=== PATIENT | female | born 1970 | race Caucasian/White ===

== ENCOUNTER 2017-10-29 22:16 | Observation (INO) | payer OTHER ==
[~2017-10-29] VITALS: Ht 162.6 cm; Wt 77.1 kg
[~2017-10-29 22:16] MED LIST: ACEBUTCAFT PO; ACET325 PO; ALUMAG30SU PO; ATOMOXETINE 80 MG; Ativan1 MG PO; BACL10; BACL20 PO; BP MED; BUTASPCAF PO; CLON.5; CLOT10 SUSW; CVS DISPOSABLE399 ML; CYCL10 PO; Cheratussin AC118 ML PO; DEPAKOTE; DIAZ5 PO; DIPH50 PO; DULO30 PO; GABA100 PO; GABA300 PO; GLYCAS PR; HYDACE10B PO; HYDACE5 PO; HYDACE5325; HYDR1TAB94 PO; HYDRA25 PO; IBUP800 PO; INDO50 PO; Inderal80 MG PO; LEVSOD100 PO; LEVSOD125; LEVSOD150 PO; LEVSOD75; LISI20; LISI20 PO; LORA1 PO; MELA3 PO; METRIBP PO; Miralax17 GM PO; NAPR500 PO; NAPR550 PO; NITR100; NORT25 PO; NUEDEXTA 20-101 EACH PO; OXYACE5T PO; OXYC10ER PO; OXYC5 PO; PARO10 PO; POLY500 PO; PRAZ1 PO; PRED20 PO; PREVPAC PO; PROACE100 PO; PROM25 PO; RANI150 PO; RXHYDACE PO; RXPROACE PO; RXPROM25 PO; Synthroid25 MCG PO; THYROID; TOPI50; TUMS300 MG PO; ZOLOFT; [UNRECOGNIZED DRUG - REMARK]
[2017-10-29 23:10] LABS: BASOPHILS ABSOLUTE AUTO 0.09 K/mm3 (0.00-0.23); BASOPHILS PERCENT AUTO 1 % (0-2); EOSINOPHILS ABSOLUTE AUTO 0.34 K/mm3 (0.00-0.68); EOSINOPHILS PERCENT AUTO 4 % (0-6); Hematocrit 44.7 % (33.0-51.0); Hemoglobin 15.6 g/dL (11.5-16.0); IMMATURE GRAN ABSOLUTE AUTO 0.03 K/mm3 (0.00-0.10); IMMATURE GRAN PERCENT AUTO 0 % (0-1); LYMPHOCYTES ABSOLUTE AUTO 2.78 K/mm3 (0.84-5.20); LYMPHOCYTES PERCENT AUTO 29 % (21-46); MONOCYTES PERCENT AUTO 9 % (4-13); Mean Corpuscular HGB 33.4 pg (26.0-34.0); Mean Corpuscular HGB Conc 34.9 g/dL (31.5-36.5); Mean Corpuscular Volume 96 fL (80-100); Mean Platelet Volume 9.7 fL (9.1-12.4); NEUTROPHILS PERCENT AUTO 57 % (41-73); Platelet Count 322 K/mm3 (150-400); RDW Coefficient Variation 13.2 % (11.7-14.2); RDW Standard Deviation 46.2 fL (35.1-46.3); Red Blood Cell Count 4.67 M/mm3 (3.80-5.20); White Blood Cell Count 9.54 K/mm3 (4.00-11.30)
[2017-10-29 23:12] LABS: Source, Urine Clean Catch
[2017-10-29 23:17] LABS: Appearance, Urine Clear (Clear); Bilirubin, Urine Neg (Neg); Blood, Urine Neg (Neg); Color, Urine Yellow (P-Yellow); Glucose Qualitative, Urine Neg (Neg); Ketones, Urine Neg (Neg); Leukocyte Esterase, Urine Neg (Neg); Nitrite, Urine Neg (Neg); Protein, Urine Neg (Neg); Urobilinogen, Urine NORM (Normal)
[2017-10-29 23:28] LABS: Alanine Aminotransfer (ALT/SGP 60 U/L (12-78); Albumin, Blood 3.7 g/dL (3.4-5.0); Albumin/Globulin Ratio 0.9 (0.8-1.8); Alk Phos 98 U/L (50-136); Anion Gap 8 mmol/L (6-16); Aspartate Aminotrans (AST/SGOT 41 U/L (12-37); Bilirubin, Total 0.4 mg/dL (0.1-1.0); Blood Urea Nitrogen 14 mg/dL (8-24); CO2, Blood 22 mmol/L (21-32); Calcium, Blood 8.5 mg/dL (8.5-10.1); Chloride, Blood 108 mmol/L (98-108); Creatinine, Blood 0.88 mg/dL (0.40-1.00); Globulin, Blood 3.9 g/dL (2.2-4.0); Glomerular Filtration Rate >60 (60-); Glucose, Blood 110 mg/dL (70-99); Potassium, Blood 3.8 mmol/L (3.5-5.5); Sodium, Blood 138 mmol/L (136-145); Total Protein, Blood 7.6 g/dL (6.4-8.2)
[2017-10-29 23:28] LABS: U Amphetamine Screen DETECTED; U Barbituate Screen Not Detected; U Benzodiazapine Screen Not Detected; U Buprenorphine Screen Not Detected; U Cannabinoids Screen Not Detected; U Cocaine Screen Not Detected; U Methadone Screen Not Detected; U Methamphetamine Screen DETECTED; U Opiates Screen DETECTED; U Oxycodone Screen Not Detected; U Phencyclidine Screen Not Detected; U Propoxyphene Screen Not Detected
== END 2017-10-30 14:20 | disposition home or self-care (01) ==
LOC: ER 22:16 → EOR 22:17
PROVIDERS: Emergency Medicine
DX: F15.10 Other stimulant abuse, uncomplicated (principal); F11.10 Opioid abuse, uncomplicated; F17.210 Nicotine dependence, cigarettes, uncomplicated; Z88.6 Allergy status to analgesic agent; Z88.8 Allergy status to other drugs, medicaments and biological substances; Z79.899 Other long term (current) drug therapy
CPT/HCPCS: 36415; 80053; 81003; 85025; 93005; 93010; 99285; G0378

== ENCOUNTER 2018-07-21 08:20 | Emergency (ER) | payer OTHER ==
[~2018-07-21] VITALS: Ht 162.6 cm; Wt 74.8 kg
[2018-07-21 10:16] LABS: BASOPHILS ABSOLUTE AUTO 0.07 K/mm3 (0.00-0.23); BASOPHILS PERCENT AUTO 1 % (0-2); EOSINOPHILS ABSOLUTE AUTO 0.17 K/mm3 (0.00-0.68); EOSINOPHILS PERCENT AUTO 2 % (0-6); Hematocrit 48.2 % (33.0-51.0); IMMATURE GRAN ABSOLUTE AUTO 0.04 K/mm3 (0.00-0.10); IMMATURE GRAN PERCENT AUTO 0 % (0-1); LYMPHOCYTES PERCENT AUTO 22 % (21-46); MONOCYTES ABSOLUTE AUTO 0.66 K/mm3 (0.16-1.47); MONOCYTES PERCENT AUTO 6 % (4-13); Mean Corpuscular HGB 32.5 pg (26.0-34.0); Mean Corpuscular HGB Conc 33.2 g/dL (31.5-36.5); Mean Corpuscular Volume 98 fL (80-100); Mean Platelet Volume 9.9 fL (9.1-12.4); NEUTROPHILS ABSOLUTE AUTO 7.11 K/mm3 (1.96-9.15); NEUTROPHILS PERCENT AUTO 69 % (41-73); Platelet Count 294 K/mm3 (150-400); RDW Coefficient Variation 13.2 % (11.7-14.2); RDW Standard Deviation 47.8 fL (35.1-46.3); Red Blood Cell Count 4.92 M/mm3 (3.80-5.20); White Blood Cell Count 10.35 K/mm3 (4.00-11.30)
[2018-07-21 10:38] LABS: Alanine Aminotransfer (ALT/SGP 68 U/L (12-78); Albumin, Blood 3.6 g/dL (3.4-5.0); Albumin/Globulin Ratio 0.9 (0.8-1.8); Alk Phos 92 U/L (50-136); Anion Gap 9 mmol/L (6-16); Aspartate Aminotrans (AST/SGOT 54 U/L (12-37); Bilirubin, Total 0.3 mg/dL (0.1-1.0); Blood Urea Nitrogen 12 mg/dL (8-24); Bun/Creatinine Ratio 12.9 (12.0-20.0); CO2, Blood 26 mmol/L (21-32); Calcium, Blood 8.7 mg/dL (8.5-10.1); Chloride, Blood 105 mmol/L (98-108); Creatinine, Blood 0.93 mg/dL (0.40-1.00); Glomerular Filtration Rate >60 (60-); Glucose, Blood 84 mg/dL (70-99); Potassium, Blood 4.1 mmol/L (3.5-5.5); Sodium, Blood 140 mmol/L (136-145); Total Protein, Blood 7.6 g/dL (6.4-8.2)
[2018-07-21] MEDS ORDERED: Bentyl20 MG PO (11:23)
[2018-07-21] MEDS ORDERED: TRAM50 PO (11:23)
== END 2018-07-21 12:11 | disposition home or self-care (01) ==
LOC: ER 08:20
PROVIDERS: Emergency Medicine
DX: K80.20 Calculus of gallbladder without cholecystitis without obstruction (principal); H26.9 Unspecified cataract; F17.210 Nicotine dependence, cigarettes, uncomplicated; E03.9 Hypothyroidism, unspecified; Z88.8 Allergy status to other drugs, medicaments and biological substances; Z79.899 Other long term (current) drug therapy
CPT/HCPCS: 76705; 80053; 83690; 84443; 85025

== ENCOUNTER → 2018-08-03 | Outpatient (CLI) | payer OTHER ==
[~2018-08-03] MED LIST changes: +BENZ100A PO; +Bentyl20 MG PO; +CEFD300 PO; +CEPH500 PO; +IBUP600 PO; +ONDA4ODT MM; +Pyridium100 MG PO; +TRAM50 PO
== END | disposition home or self-care (01) ==
LOC: LAB SHORT 16:42 → LAB EV 16:42
DX: N39.0 Urinary tract infection, site not specified (principal)
CPT/HCPCS: 87086

== ENCOUNTER 2018-08-14 23:20 | Emergency (ER) | payer OTHER ==
[~2018-08-14] VITALS: Ht 162.6 cm; Wt 83.9 kg
[~2018-08-14 23:20] MED LIST changes: -BENZ100A PO; -CEFD300 PO; -CEPH500 PO; -IBUP600 PO; -ONDA4ODT MM; -Pyridium100 MG PO
[2018-08-15 00:55] LABS: Source, Urine Clean Catch
[2018-08-15 01:02] LABS: Bilirubin, Urine Neg (Neg); Blood, Urine Neg (Neg); Glucose Qualitative, Urine Neg (Neg); Ketones, Urine Neg (Neg); Leukocyte Esterase, Urine 2+ (Neg); Nitrite, Urine Neg (Neg); Protein, Urine Neg (Neg); Specific Gravity, Urine 1.015 (1.003-1.022); Urobilinogen, Urine 1+ (Normal); pH, Urine 6.5 (5.0-8.0)
[2018-08-15 01:06] LABS: Appearance, Urine Clear (Clear); Color, Urine Yellow (P-Yellow)
[2018-08-15 01:19] LABS: Bacteria Few /hpf; Red Blood Cells, Urine Not Seen /hpf (0-2); Squamous Epithelial Cells Rare /hpf (Few); Trichomonas Few /hpf
[2018-08-15] MEDS ORDERED: IBUP600 PO (01:21)
[2018-08-15] MEDS ORDERED: BENZ100A PO (01:21)
[2018-08-15] MEDS ORDERED: CEPH500 PO (01:21)
[2018-08-15] MEDS ORDERED: Pyridium100 MG PO (01:21)
[2018-08-15] MEDS ORDERED: ONDA4ODT MM (01:21)
[2018-09-18] MEDS ORDERED: CEPH500 PO (19:44)
== END 2018-08-15 02:14 | disposition home or self-care (01) ==
LOC: ER 23:20
PROVIDERS: Emergency Medicine
DX: N12 Tubulo-interstitial nephritis, not specified as acute or chronic (principal); J06.9 Acute upper respiratory infection, unspecified; E03.9 Hypothyroidism, unspecified; F17.210 Nicotine dependence, cigarettes, uncomplicated
CPT/HCPCS: 81001; 87086; 96372; 99283-25; J1885; P9612

== ENCOUNTER 2018-09-02 22:21 | Emergency (ER) | payer OTHER ==
[~2018-09-02] VITALS: Ht 162.6 cm; Wt 83.9 kg
[~2018-09-02 22:21] MED LIST changes: +BENZ100A PO; +CEPH500 PO; +IBUP600 PO; +ONDA4ODT MM; +Pyridium100 MG PO
[2018-09-03 02:02] LABS: Source, Urine Clean Catch
[2018-09-03 02:07] LABS: Bilirubin, Urine Neg (Neg); Blood, Urine 1+ (Neg); Glucose Qualitative, Urine Neg (Neg); Ketones, Urine Neg (Neg); Leukocyte Esterase, Urine 3+ (Neg); Nitrite, Urine Neg (Neg); Protein, Urine 1+ (Neg); Urobilinogen, Urine 1+ (Normal); pH, Urine 6.5 (5.0-8.0)
[2018-09-03 02:09] LABS: Appearance, Urine Hazy (Clear); Color, Urine Yellow (P-Yellow)
[2018-09-03 02:15] LABS: Amorphous Light (0-Heavy); Bacteria Mod /hpf; Mucus Light (0-Heavy); Squamous Epithelial Cells Few /hpf (Few); White Blood Cells, Urine TNTC /hpf (0-5)
[2018-09-03] MEDS ORDERED: CEFD300 PO (02:22)
[2018-09-18] MEDS ORDERED: CEPH500 PO (19:44)
== END 2018-09-03 02:55 | disposition home or self-care (01) ==
LOC: ER 22:21
PROVIDERS: Emergency Medicine
DX: N39.0 Urinary tract infection, site not specified (principal); E03.9 Hypothyroidism, unspecified; F17.210 Nicotine dependence, cigarettes, uncomplicated; Z88.8 Allergy status to other drugs, medicaments and biological substances; Z88.6 Allergy status to analgesic agent
CPT/HCPCS: 81001; 87086; 99283

== ENCOUNTER → 2018-09-23 | Outpatient (CLI) | payer OTHER ==
[~2018-09-23] MED LIST changes: +CEFD300 PO
== END | disposition home or self-care (01) ==
LOC: LAB SHORT 17:00 → LAB EV 17:00
DX: N39.0 Urinary tract infection, site not specified (principal)
CPT/HCPCS: 87086

== ENCOUNTER 2019-03-13 12:42 | Emergency (ER) | payer OTHER ==
[~2019-03-13] VITALS: Ht 162.6 cm; Wt 68.0 kg
[2019-03-13 15:02] LABS: BASOPHILS PERCENT AUTO 1 % (0-2); EOSINOPHILS ABSOLUTE AUTO 0.52 K/mm3 (0.00-0.68); EOSINOPHILS PERCENT AUTO 4 % (0-6); Hematocrit 44.7 % (33.0-51.0); Hemoglobin 15.3 g/dL (11.5-16.0); IMMATURE GRAN ABSOLUTE AUTO 0.08 K/mm3 (0.00-0.10); IMMATURE GRAN PERCENT AUTO 1 % (0-1); LYMPHOCYTES ABSOLUTE AUTO 3.06 K/mm3 (0.84-5.20); LYMPHOCYTES PERCENT AUTO 24 % (21-46); MONOCYTES ABSOLUTE AUTO 0.98 K/mm3 (0.16-1.47); MONOCYTES PERCENT AUTO 8 % (4-13); Mean Corpuscular HGB 33.6 pg (26.0-34.0); Mean Corpuscular HGB Conc 34.2 g/dL (31.5-36.5); Mean Corpuscular Volume 98 fL (80-100); Mean Platelet Volume 10.4 fL (9.1-12.4); NEUTROPHILS ABSOLUTE AUTO 8.25 K/mm3 (1.96-9.15); NEUTROPHILS PERCENT AUTO 64 % (41-73); Platelet Count 273 K/mm3 (150-400); RDW Coefficient Variation 13.8 % (11.7-14.2); RDW Standard Deviation 50.4 fL (35.1-46.3); Red Blood Cell Count 4.55 M/mm3 (3.80-5.20); White Blood Cell Count 12.99 K/mm3 (4.00-11.30)
[2019-03-13 15:20] LABS: Albumin, Blood 4.4 g/dL (3.4-5.0); Albumin/Globulin Ratio 1.1 (0.8-1.8); Bilirubin, Total 0.7 mg/dL (0.1-1.0); Bun/Creatinine Ratio 21.1 (12.0-20.0); Calcium, Blood 10.7 mg/dL (8.5-10.1); Creatinine, Blood 1.09 mg/dL (0.40-1.00); Globulin, Blood 3.9 g/dL (2.2-4.0); Potassium, Blood 3.6 mmol/L (3.5-5.5); Total Protein, Blood 8.3 g/dL (6.4-8.2)
[2019-03-13] MEDS ORDERED: Synthroid25 MCG PO (16:23)
[2019-03-13] MEDS ORDERED: NO ROUTINE MEDS (16:52)
[2019-05-06] MEDS ORDERED: LEVSOD25 PO (09:41)
[2019-05-06] MEDS ORDERED: ALBU90OI INH (09:42)
[2019-05-06] MEDS ORDERED: HYDR10 PO (09:43)
[2019-05-06] MEDS ORDERED: HYDR1TAB94 PO (09:43)
[2019-05-06] MEDS ORDERED: LABE100 PO (09:44)
[2019-05-06] MEDS ORDERED: ONDA4ODT PO (09:44)
== END 2019-03-13 19:10 | disposition home or self-care (01) ==
LOC: ER 12:42
PROVIDERS: Internal Medicine
DX: E03.9 Hypothyroidism, unspecified (principal); Z91.19 Patient's noncompliance with other medical treatment and regimen; Z88.8 Allergy status to other drugs, medicaments and biological substances; Z88.6 Allergy status to analgesic agent; F17.210 Nicotine dependence, cigarettes, uncomplicated
CPT/HCPCS: 36415; 80053; 84443; 85025; 99285

== ENCOUNTER 2019-03-19 06:36 | Emergency (ER) | payer OTHER ==
[~2019-03-19] VITALS: Ht 162.6 cm; Wt 95.2 kg
[~2019-03-19 06:36] MED LIST changes: +NO ROUTINE MEDS
[2019-03-19 07:21] LABS: Source, Urine Clean Catch
[2019-03-19 07:28] LABS: Appearance, Urine Cloudy (Clear); Bilirubin, Urine Neg (Neg); Blood, Urine 2+ (Neg); Color, Urine Yellow (P-Yellow); Glucose Qualitative, Urine Neg (Neg); Ketones, Urine 1+ (Neg); Leukocyte Esterase, Urine 3+ (Neg); Nitrite, Urine Neg (Neg); Protein, Urine 2+ (Neg); Specific Gravity, Urine 1.025 (1.003-1.022); Urobilinogen, Urine 1+ (Normal)
[2019-03-19 07:38] LABS: Squamous Epithelial Cells Few /hpf (Few); White Blood Cells, Urine 25-50 /hpf (0-5)
[2019-03-19 07:40] LABS: Trichomonas Few /hpf
[2019-03-19 07:42] LABS: Amorphous Light (0-Heavy); Bacteria Many /hpf
[2019-03-19] MEDS ORDERED: IBUP400 PO (08:35)
[2019-03-19] MEDS ORDERED: CEPH500 PO (08:35)
[2019-03-19] MEDS ORDERED: Bactrim Ds Tab1 EACH PO (08:35)
[2019-05-06] MEDS ORDERED: LEVSOD25 PO (09:41)
[2019-05-06] MEDS ORDERED: ALBU90OI INH (09:42)
[2019-05-06] MEDS ORDERED: HYDR1TAB94 PO (09:43)
[2019-05-06] MEDS ORDERED: HYDR10 PO (09:43)
[2019-05-06] MEDS ORDERED: ONDA4ODT PO (09:44)
[2019-05-06] MEDS ORDERED: LABE100 PO (09:44)
== END 2019-03-19 09:07 | disposition home or self-care (01) ==
LOC: ER 06:36
PROVIDERS: Emergency Medicine
DX: L03.113 Cellulitis of right upper limb (principal); M25.512 Pain in left shoulder; N39.0 Urinary tract infection, site not specified; F17.210 Nicotine dependence, cigarettes, uncomplicated; Z88.8 Allergy status to other drugs, medicaments and biological substances
CPT/HCPCS: 73030; 81001; 87086; 99283-25

== ENCOUNTER 2019-05-04 03:12 | Observation (INO) | payer OTHER ==
[~2019-05-04] VITALS: Ht 162.6 cm; Wt 77.1 kg
[~2019-05-04 03:12] MED LIST changes: +Bactrim Ds Tab1 EACH PO; +IBUP400 PO
[2019-05-04 04:09] LABS: BASOPHILS ABSOLUTE AUTO 0.04 K/mm3 (0.00-0.23); BASOPHILS PERCENT AUTO 1 % (0-2); EOSINOPHILS ABSOLUTE AUTO 0.28 K/mm3 (0.00-0.68); EOSINOPHILS PERCENT AUTO 3 % (0-6); Hematocrit 37.6 % (33.0-51.0); Hemoglobin 12.9 g/dL (11.5-16.0); IMMATURE GRAN ABSOLUTE AUTO 0.08 K/mm3 (0.00-0.10); IMMATURE GRAN PERCENT AUTO 1 % (0-1); LYMPHOCYTES ABSOLUTE AUTO 2.42 K/mm3 (0.84-5.20); LYMPHOCYTES PERCENT AUTO 30 % (21-46); MONOCYTES ABSOLUTE AUTO 0.62 K/mm3 (0.16-1.47); MONOCYTES PERCENT AUTO 8 % (4-13); Mean Corpuscular HGB 33.7 pg (26.0-34.0); Mean Corpuscular HGB Conc 34.3 g/dL (31.5-36.5); Mean Corpuscular Volume 98 fL (80-100); NEUTROPHILS ABSOLUTE AUTO 4.76 K/mm3 (1.96-9.15); NEUTROPHILS PERCENT AUTO 58 % (41-73); Platelet Count 248 K/mm3 (150-400); RDW Coefficient Variation 13.4 % (11.7-14.2); RDW Standard Deviation 48.7 fL (35.1-46.3); Red Blood Cell Count 3.83 M/mm3 (3.80-5.20)
[2019-05-04 04:32] LABS: Alanine Aminotransfer (ALT/SGP 61 U/L (12-78); Albumin, Blood 3.4 g/dL (3.4-5.0); Albumin/Globulin Ratio 0.8 (0.8-1.8); Alk Phos 72 U/L (50-136); Anion Gap 7 mmol/L (6-16); Aspartate Aminotrans (AST/SGOT 76 U/L (12-37); Bilirubin, Total 0.4 mg/dL (0.1-1.0); Blood Urea Nitrogen 14 mg/dL (8-24); CO2, Blood 25 mmol/L (21-32); Calcium, Blood 8.6 mg/dL (8.5-10.1); Chloride, Blood 106 mmol/L (98-108); Creatinine, Blood 0.93 mg/dL (0.40-1.00); Glomerular Filtration Rate >60 (60-); Glucose, Blood 98 mg/dL (70-99); Potassium, Blood 4.2 mmol/L (3.5-5.5); Sodium, Blood 138 mmol/L (136-145); Total Protein, Blood 7.4 g/dL (6.4-8.2)
[2019-05-04 07:20] LABS: Prothrombin Time Results 10.6 Sec (9.7-11.5)
--- NOTE | 2019-05-04 09:16 | NUR ---
PRE OP TEST PT HAD HYSTERECTOMY IN 2002. NO NEED FOR TEST.
--- NOTE | 2019-05-04 18:32 | NUR ---
SHIFT SUMMARY PT HAS DONE WELL SINCE ARRIVAL TO UNIT. SLEPT WELL, UP TO USE BATHROOM x 4, OUTSIDE x 1 WITH BOYFRIEND VIA W/C, TOLERATING DIET WELL AT THIS TIME. PLAN FOR OR TOMORROW AFTERNOON.
[2019-05-05 03:52] LABS: Hematocrit 44.6 % (33.0-51.0); Hemoglobin 14.5 g/dL (11.5-16.0); Mean Corpuscular HGB 33.3 pg (26.0-34.0); Mean Corpuscular HGB Conc 32.5 g/dL (31.5-36.5); Platelet Count 258 K/mm3 (150-400); RDW Coefficient Variation 13.8 % (11.7-14.2); RDW Standard Deviation 52.5 fL (35.1-46.3); Red Blood Cell Count 4.36 M/mm3 (3.80-5.20); White Blood Cell Count 8.97 K/mm3 (4.00-11.30)
[2019-05-05 03:57] LABS: Mean Corpuscular Volume 102 fL (80-100)
[2019-05-05 04:11] LABS: Alanine Aminotransfer (ALT/SGP 62 U/L (12-78); Albumin, Blood 3.3 g/dL (3.4-5.0); Albumin/Globulin Ratio 0.9 (0.8-1.8); Alk Phos 74 U/L (50-136); Anion Gap 6 mmol/L (6-16); Aspartate Aminotrans (AST/SGOT 57 U/L (12-37); Bilirubin, Total 0.2 mg/dL (0.1-1.0); Blood Urea Nitrogen 9 mg/dL (8-24); Bun/Creatinine Ratio 9.3 (12.0-20.0); CO2, Blood 24 mmol/L (21-32); Calcium, Blood 8.5 mg/dL (8.5-10.1); Chloride, Blood 108 mmol/L (98-108); Creatinine, Blood 0.97 mg/dL (0.40-1.00); Globulin, Blood 3.8 g/dL (2.2-4.0); Glomerular Filtration Rate >60 (60-); Glucose, Blood 105 mg/dL (70-99); Potassium, Blood 3.5 mmol/L (3.5-5.5); Sodium, Blood 138 mmol/L (136-145); Total Protein, Blood 7.1 g/dL (6.4-8.2)
--- NOTE | 2019-05-05 04:30 | NUR ---
PT A/O X4. VSS; BP elevated, but asymptomatic. will continue to monitor. Complaints of moderate pain to abdomen, medicated as ordered. Put on clear liquid diet and 0000. will make npo at 0600. IV to L EJ, patent and flushes with ease. patient resting comfortably.
--- NOTE | 2019-05-05 08:25 | NUR ---
DROWSY THIS AM, AWAKENS EASILY WHEN NAME CALLED, C/O OF PAIN BUT FALLS RIGHT BACK TO SLEEP, CONT. TO MONITOR FOR ANY CHANGES.
--- NOTE | 2019-05-05 12:57 | NUR ---
PT TAKEN TO DAY SURGERY.
--- NOTE | 2019-05-05 13:08 | NUR ---
PT BROUGHT TO UNIT VIA GURNEY. History, Chart, Medications and Allergies reviewed before start of procedure.Patient confirms NPO status and agrees with scheduled surgery. Surgical site prepped with 2% Chlorhexidine cloth wipe. Lungs clear T/O to Auscultation. PT DROSWEY BUT ARROUSABLE ENOUGH TO USE RESTROOM.
--- NOTE | 2019-05-05 18:07 | NUR ---
SUMMARY S/P LAP STACY, DENIES ANY NEED FOR PAIN MEDS AT THIS TIME, STATES "I WANT TO EAT" DENIES ANY NAUSEA, CONTINUES TO BE ELEVATED, HYDRALZINE PRN, NO ACUTE CHANGES THIS SHIFT.
--- NOTE | 2019-05-06 04:29 | NUR ---
Patient alert and oriented x4. Elevated blood pressure, hydralazine given. Ambulating to bathroom, voiding freely. Complaints of mild pain, medicated as ordered. Saline locked. Tolerating PO.
[2019-05-06] MEDS ORDERED: LEVSOD25 PO ×2 (09:41)
[2019-05-06] MEDS ORDERED: ALBU90OI INH ×2 (09:42)
[2019-05-06] MEDS ORDERED: HYDR1TAB94 PO ×2 (09:43)
[2019-05-06] MEDS ORDERED: HYDR10 PO ×2 (09:43)
[2019-05-06] MEDS ORDERED: ONDA4ODT PO ×2 (09:44)
[2019-05-06] MEDS ORDERED: LABE100 PO ×2 (09:44)
--- NOTE | 2019-05-06 16:56 | NUR ---
DC'S HOME W/ FRIEND, DC INSTRUCTIONS GIVEN, VERBALIZED UNDERSTANDING.
== END 2019-05-06 16:49 | disposition home or self-care (01) ==
LOC: ER 03:12 → SURS 03:13
PROVIDERS: Emergency Medicine; Surgery; ADMIT Internal Medicine
PROC: 0FT44ZZ Resection of Gallbladder, Percutaneous Endoscopic Approach (ICD-10-PCS; principal; 2019-05-05 13:15)
DX: K80.12 Calculus of gallbladder with acute and chronic cholecystitis without obstruction (principal); E03.9 Hypothyroidism, unspecified; F17.210 Nicotine dependence, cigarettes, uncomplicated; Z88.8 Allergy status to other drugs, medicaments and biological substances; Z88.6 Allergy status to analgesic agent
CPT/HCPCS: 36415; 76705; 80053; 83690; 85025; 85027; 85610; 88304; 93005; 93010; 96361; 96365; 96366; 96372; 96375; 96376; 99285-25; A9270-GY; G0378; J0360; J0690; J1100; J1650; J1885; J2060; J2405; J2543; J2704; J3010; J7030; J7120

== ENCOUNTER 2019-05-07 17:46 | Emergency (ER) | payer OTHER ==
[~2019-05-07] VITALS: Ht 162.6 cm; Wt 72.6 kg
[~2019-05-07 17:46] MED LIST changes: +ALBU90OI INH; +HYDR10 PO; +LABE100 PO; +LEVSOD25 PO; +ONDA4ODT PO
[2019-05-07 20:46] LABS: BASOPHILS ABSOLUTE AUTO 0.08 K/mm3 (0.00-0.23); BASOPHILS PERCENT AUTO 1 % (0-2); EOSINOPHILS ABSOLUTE AUTO 0.47 K/mm3 (0.00-0.68); EOSINOPHILS PERCENT AUTO 3 % (0-6); Hematocrit 37.3 % (33.0-51.0); Hemoglobin 12.4 g/dL (11.5-16.0); IMMATURE GRAN ABSOLUTE AUTO 0.18 K/mm3 (0.00-0.10); IMMATURE GRAN PERCENT AUTO 1 % (0-1); LYMPHOCYTES ABSOLUTE AUTO 2.92 K/mm3 (0.84-5.20); LYMPHOCYTES PERCENT AUTO 19 % (21-46); MONOCYTES ABSOLUTE AUTO 1.02 K/mm3 (0.16-1.47); MONOCYTES PERCENT AUTO 7 % (4-13); Mean Corpuscular HGB 33.5 pg (26.0-34.0); Mean Corpuscular HGB Conc 33.2 g/dL (31.5-36.5); Mean Corpuscular Volume 101 fL (80-100); NEUTROPHILS PERCENT AUTO 70 % (41-73); RDW Coefficient Variation 13.9 % (11.7-14.2); RDW Standard Deviation 50.4 fL (35.1-46.3); White Blood Cell Count 15.37 K/mm3 (4.00-11.30)
[2019-05-07 20:48] LABS: Mean Platelet Volume 10.6 fL (9.1-12.4); Platelet Count 255 K/mm3 (150-400)
[2019-05-07 20:50] LABS: Alanine Aminotransfer (ALT/SGP 60 U/L (12-78); Albumin, Blood 3.4 g/dL (3.4-5.0); Alk Phos 71 U/L (50-136); Anion Gap 8 mmol/L (6-16); Aspartate Aminotrans (AST/SGOT 42 U/L (12-37); Bilirubin, Total 0.2 mg/dL (0.1-1.0); Blood Urea Nitrogen 14 mg/dL (8-24); Bun/Creatinine Ratio 14.7 (12.0-20.0); CO2, Blood 27 mmol/L (21-32); Chloride, Blood 105 mmol/L (98-108); Creatinine, Blood 0.95 mg/dL (0.40-1.00); Globulin, Blood 3.4 g/dL (2.2-4.0); Glomerular Filtration Rate >60 (60-); Glucose, Blood 78 mg/dL (70-99); Sodium, Blood 140 mmol/L (136-145); Total Protein, Blood 6.8 g/dL (6.4-8.2)
== END 2019-05-07 22:55 | disposition home or self-care (01) ==
LOC: ER 17:46
PROVIDERS: Emergency Medicine
DX: G89.18 Other acute postprocedural pain (principal); R10.11 Right upper quadrant pain; F17.210 Nicotine dependence, cigarettes, uncomplicated; Z90.49 Acquired absence of other specified parts of digestive tract; Z88.8 Allergy status to other drugs, medicaments and biological substances; Z79.899 Other long term (current) drug therapy; Z79.891 Long term (current) use of opiate analgesic
CPT/HCPCS: 36415; 74177; 80053; 83690; 85025; 99284-25; Q9967

== ENCOUNTER 2019-06-27 14:51 | Emergency (ER) | payer OTHER ==
[~2019-06-27] VITALS: Ht 162.6 cm; Wt 86.2 kg
[2019-06-27] MEDS ORDERED: Monodox100 MG PO (19:00)
== END 2019-06-27 19:48 | disposition home or self-care (01) ==
LOC: ER 14:51
DX: L03.311 Cellulitis of abdominal wall (principal); E03.9 Hypothyroidism, unspecified; F17.210 Nicotine dependence, cigarettes, uncomplicated; Z59.0 Homelessness; Z88.8 Allergy status to other drugs, medicaments and biological substances; Z88.6 Allergy status to analgesic agent; Z79.899 Other long term (current) drug therapy; Z79.51 Long term (current) use of inhaled steroids; Z90.49 Acquired absence of other specified parts of digestive tract
CPT/HCPCS: 74176; 99284-25

== ENCOUNTER 2019-07-02 21:30 | Emergency (ER) | payer OTHER ==
[~2019-07-02] VITALS: Ht 162.6 cm; Wt 86.2 kg
[~2019-07-02 21:30] MED LIST changes: +Monodox100 MG PO
[2019-07-03 00:41] LABS: BASOPHILS ABSOLUTE AUTO 0.09 K/mm3 (0.00-0.23); BASOPHILS PERCENT AUTO 1 % (0-2); EOSINOPHILS ABSOLUTE AUTO 0.42 K/mm3 (0.00-0.68); EOSINOPHILS PERCENT AUTO 4 % (0-6); Hematocrit 33.4 % (33.0-51.0); Hemoglobin 11.1 g/dL (11.5-16.0); IMMATURE GRAN ABSOLUTE AUTO 0.17 K/mm3 (0.00-0.10); IMMATURE GRAN PERCENT AUTO 1 % (0-1); LYMPHOCYTES ABSOLUTE AUTO 2.94 K/mm3 (0.84-5.20); LYMPHOCYTES PERCENT AUTO 25 % (21-46); MONOCYTES ABSOLUTE AUTO 0.62 K/mm3 (0.16-1.47); MONOCYTES PERCENT AUTO 5 % (4-13); Mean Corpuscular HGB 35.2 pg (26.0-34.0); Mean Corpuscular HGB Conc 33.2 g/dL (31.5-36.5); Mean Corpuscular Volume 106 fL (80-100); Mean Platelet Volume 10.5 fL (9.1-12.4); NEUTROPHILS ABSOLUTE AUTO 7.76 K/mm3 (1.96-9.15); NEUTROPHILS PERCENT AUTO 65 % (41-73); Platelet Count 262 K/mm3 (150-400); RDW Coefficient Variation 14.8 % (11.7-14.2); RDW Standard Deviation 55.5 fL (35.1-46.3); Red Blood Cell Count 3.15 M/mm3 (3.80-5.20)
[2019-07-03 00:59] LABS: Alanine Aminotransfer (ALT/SGP 79 U/L (12-78); Albumin, Blood 4.2 g/dL (3.4-5.0); Alk Phos 97 U/L (50-136); Anion Gap 7 mmol/L (6-16); Aspartate Aminotrans (AST/SGOT 127 U/L (12-37); Bilirubin, Total 0.6 mg/dL (0.1-1.0); Blood Urea Nitrogen 16 mg/dL (8-24); Bun/Creatinine Ratio 16.1 (12.0-20.0); CO2, Blood 29 mmol/L (21-32); Calcium, Blood 9.8 mg/dL (8.5-10.1); Chloride, Blood 103 mmol/L (98-108); Creatinine, Blood 0.99 mg/dL (0.40-1.00); Glomerular Filtration Rate >60 (60-); Glucose, Blood 82 mg/dL (70-99); Potassium, Blood 3.7 mmol/L (3.5-5.5); Sodium, Blood 139 mmol/L (136-145); Total Protein, Blood 8.2 g/dL (6.4-8.2)
[2019-07-03 03:49] LABS: International Normalized Ratio 0.98; Prothrombin Time Results 10.4 Sec (9.7-11.5)
[2019-07-03] MEDS ORDERED: Synthroid25 MCG PO (04:42)
== END 2019-07-03 05:21 | disposition home or self-care (01) ==
LOC: ER 21:30
PROVIDERS: Emergency Medicine
DX: S70.11XA Contusion of right thigh, initial encounter (principal); Z76.0 Encounter for issue of repeat prescription; D72.829 Elevated white blood cell count, unspecified; E03.9 Hypothyroidism, unspecified; F17.200 Nicotine dependence, unspecified, uncomplicated; Z88.8 Allergy status to other drugs, medicaments and biological substances; Z88.6 Allergy status to analgesic agent; Z79.899 Other long term (current) drug therapy
CPT/HCPCS: 36415; 71045; 80053; 83690; 85025; 85610; 85730; 93005; 93010; 99284-25

== ENCOUNTER 2019-07-21 00:57 | Emergency (ER) | payer OTHER ==
[~2019-07-21] VITALS: Ht 162.6 cm; Wt 86.2 kg
[2019-07-21] MEDS ORDERED: FOLI1 PO (01:46)
[2019-07-21] MEDS ORDERED: LISI20 PO (01:46)
[2019-07-21] MEDS ORDERED: LIOT25 PO (01:47)
== END 2019-07-21 03:47 | disposition home or self-care (01) ==
LOC: ER 00:57
DX: M25.571 Pain in right ankle and joints of right foot (principal); E03.9 Hypothyroidism, unspecified; Z86.19 Personal history of other infectious and parasitic diseases; F17.210 Nicotine dependence, cigarettes, uncomplicated; Z88.6 Allergy status to analgesic agent; Z79.899 Other long term (current) drug therapy
CPT/HCPCS: 99282; A9270-GY

== ENCOUNTER 2020-12-19 15:46 | Emergency (ER) | payer MEDICARE, OTHER ==
[~2020-12-19] VITALS: Ht 162.6 cm; Wt 68.0 kg
[~2020-12-19 15:46] MED LIST changes: +EUTHYROX25 MC1 PO; +FOLI1 PO; +LIOT25 PO; +Prinivil10 MG PO
[2020-12-19] MEDS ORDERED: Synthroid25 MCG PO (15:59)
== END 2020-12-19 16:02 | disposition home or self-care (01) ==
LOC: ER 15:46
DX: Z76.0 Encounter for issue of repeat prescription (principal); E03.9 Hypothyroidism, unspecified; F17.200 Nicotine dependence, unspecified, uncomplicated; Z88.8 Allergy status to other drugs, medicaments and biological substances; Z88.6 Allergy status to analgesic agent; Z79.899 Other long term (current) drug therapy
CPT/HCPCS: 99282

== ENCOUNTER 2021-02-18 18:18 | Emergency (ER) | payer MEDICARE, OTHER ==
[~2021-02-18] VITALS: Ht 162.6 cm; Wt 77.1 kg
[2021-02-18 21:13] LABS: Source, Urine Clean Catch
[2021-02-18 21:16] LABS: BASOPHILS ABSOLUTE AUTO 0.08 K/mm3 (0.00-0.23); BASOPHILS PERCENT AUTO 1 % (0-2); EOSINOPHILS ABSOLUTE AUTO 0.34 K/mm3 (0.00-0.68); EOSINOPHILS PERCENT AUTO 4 % (0-6); Hematocrit 38.8 % (33.0-51.0); Hemoglobin 13.7 g/dL (11.5-16.0); IMMATURE GRAN ABSOLUTE AUTO 0.03 K/mm3 (0.00-0.10); IMMATURE GRAN PERCENT AUTO 0 % (0-1); LYMPHOCYTES ABSOLUTE AUTO 2.74 K/mm3 (0.84-5.20); LYMPHOCYTES PERCENT AUTO 29 % (21-46); MONOCYTES PERCENT AUTO 8 % (4-13); Mean Corpuscular HGB 32.5 pg (26.0-34.0); Mean Corpuscular HGB Conc 35.3 g/dL (31.5-36.5); Mean Corpuscular Volume 92 fL (80-100); Mean Platelet Volume 10.4 fL (9.1-12.4); NEUTROPHILS ABSOLUTE AUTO 5.61 K/mm3 (1.96-9.15); NEUTROPHILS PERCENT AUTO 59 % (41-73); Platelet Count 314 K/mm3 (150-400); RDW Coefficient Variation 14.6 % (11.7-14.2); RDW Standard Deviation 49.1 fL (35.1-46.3); Red Blood Cell Count 4.22 M/mm3 (3.80-5.20)
[2021-02-18 21:17] LABS: Bilirubin, Urine Neg (Neg); Blood, Urine Neg (Neg); Color, Urine Yellow (P-Yellow); Glucose Qualitative, Urine Neg (Neg); Ketones, Urine 1+ (Neg); Leukocyte Esterase, Urine 1+ (Neg); Nitrite, Urine Neg (Neg); Protein, Urine 2+ (Neg); Specific Gravity, Urine 1.025 (1.003-1.022); Urobilinogen, Urine NORM (Normal)
[2021-02-18 21:23] LABS: Appearance, Urine Hazy (Clear)
[2021-02-18 21:24] LABS: Bacteria Many /hpf; Calcium Oxalate Crystals Mod /hpf; Red Blood Cells, Urine Not Seen /hpf (0-2); Squamous Epithelial Cells Few /hpf (Few)
[2021-02-18 21:37] LABS: Alanine Aminotransfer (ALT/SGP 104 U/L (12-78); Alk Phos 82 U/L (50-136); Anion Gap 6 mmol/L (6-16); Aspartate Aminotrans (AST/SGOT 68 U/L (12-37); Bilirubin, Total 0.3 mg/dL (0.1-1.0); Blood Urea Nitrogen 13 mg/dL (8-24); Bun/Creatinine Ratio 13.4 (12.0-20.0); CO2, Blood 25 mmol/L (21-32); Calcium, Blood 9.4 mg/dL (8.5-10.1); Chloride, Blood 109 mmol/L (98-108); Creatinine, Blood 0.97 mg/dL (0.40-1.00); Glomerular Filtration Rate >60 (60-); Glucose, Blood 91 mg/dL (70-99); Potassium, Blood 3.9 mmol/L (3.5-5.5); Sodium, Blood 140 mmol/L (136-145)
[2021-02-18] MEDS ORDERED: CYCL10 PO (23:42)
[2021-02-18] MEDS ORDERED: CEPH500 PO (23:42)
== END 2021-02-19 00:42 | disposition home or self-care (01) ==
LOC: ER 18:18
PROVIDERS: Physician Assistant
DX: N39.0 Urinary tract infection, site not specified (principal); M62.838 Other muscle spasm; E03.9 Hypothyroidism, unspecified; I10 Essential (primary) hypertension; F17.200 Nicotine dependence, unspecified, uncomplicated; Z79.899 Other long term (current) drug therapy; Z88.6 Allergy status to analgesic agent; Z88.8 Allergy status to other drugs, medicaments and biological substances
CPT/HCPCS: 80053; 81001; 85025; 87086; 99283

== ENCOUNTER → 2021-03-29 | Outpatient (CLI) | payer MEDICARE, OTHER | END | disposition home or self-care (01) | LOC: LAB SHORT 17:31 → LAB 17:31 | DX: R30.9 Painful micturition, unspecified (principal) | CPT/HCPCS: 87086 ==

== ENCOUNTER 2021-05-01 16:35 | Observation (INO) | payer MEDICARE, OTHER ==
[~2021-05-01] VITALS: Ht 162.6 cm; Wt 81.7 kg
[2021-05-01 17:46] LABS: BASOPHILS ABSOLUTE AUTO 0.09 K/mm3 (0.00-0.23); BASOPHILS PERCENT AUTO 1 % (0-2); EOSINOPHILS ABSOLUTE AUTO 0.19 K/mm3 (0.00-0.68); EOSINOPHILS PERCENT AUTO 2 % (0-6); Hematocrit 45.6 % (33.0-51.0); Hemoglobin 15.6 g/dL (11.5-16.0); IMMATURE GRAN ABSOLUTE AUTO 0.04 K/mm3 (0.00-0.10); IMMATURE GRAN PERCENT AUTO 0 % (0-1); LYMPHOCYTES ABSOLUTE AUTO 2.84 K/mm3 (0.84-5.20); LYMPHOCYTES PERCENT AUTO 30 % (21-46); MONOCYTES ABSOLUTE AUTO 0.69 K/mm3 (0.16-1.47); MONOCYTES PERCENT AUTO 7 % (4-13); Mean Corpuscular HGB 32.4 pg (26.0-34.0); Mean Corpuscular HGB Conc 34.2 g/dL (31.5-36.5); Mean Corpuscular Volume 95 fL (80-100); Mean Platelet Volume 10.4 fL (9.1-12.4); NEUTROPHILS ABSOLUTE AUTO 5.53 K/mm3 (1.96-9.15); NEUTROPHILS PERCENT AUTO 59 % (41-73); Platelet Count 298 K/mm3 (150-400); RDW Coefficient Variation 12.9 % (11.7-14.2); RDW Standard Deviation 45.3 fL (35.1-46.3); Red Blood Cell Count 4.81 M/mm3 (3.80-5.20); White Blood Cell Count 9.38 K/mm3 (4.00-11.30)
[2021-05-01 18:11] LABS: Anion Gap 4 mmol/L (6-16); Blood Urea Nitrogen 17 mg/dL (8-24); Bun/Creatinine Ratio 17.4 (12.0-20.0); CO2, Blood 23 mmol/L (21-32); Calcium, Blood 9.9 mg/dL (8.5-10.1); Chloride, Blood 113 mmol/L (98-108); Creatinine, Blood 0.98 mg/dL (0.40-1.00); Glomerular Filtration Rate >60 (60-); Glucose, Blood 86 mg/dL (70-99); Magnesium, Blood 2.4 mg/dL (1.6-2.4); Sodium, Blood 140 mmol/L (136-145); Troponin I <0.015 ng/mL (0.000-0.040)
[2021-05-01 22:39] LABS: SARS-Cov-2 (COVID-19) PCR, MMC NEGATIVE (NEGATIVE)
[2021-05-02 11:54] LABS: U Amphetamine Screen Not Detected; U Methamphetamine Screen Not Detected
[2021-05-02 11:55] LABS: U Barbituate Screen Not Detected; U Benzodiazapine Screen Not Detected; U Buprenorphine Screen Not Detected; U Cannabinoids Screen DETECTED; U Cocaine Screen Not Detected; U Methadone Screen Not Detected; U Opiates Screen Not Detected; U Oxycodone Screen Not Detected; U Phencyclidine Screen Not Detected; U Propoxyphene Screen Not Detected
[2021-05-02 13:41] LABS: Acetaminophen, Random <2.0 ug/mL (10.0-30.0)
[2021-05-03] MEDS ORDERED: TRAZ50 PO (20:49)
[2021-05-03] MEDS ORDERED: HYDHCL25 PO (20:49)
== END 2021-05-03 21:50 | disposition home or self-care (01) ==
LOC: ER 16:35 → EOR 16:36
PROVIDERS: Psychiatry & Neurology Psychiatry; ADMIT Student in an Organized Health Care Education/Training Program
DX: F43.23 Adjustment disorder with mixed anxiety and depressed mood (principal); F19.11 Other psychoactive substance abuse, in remission; F12.10 Cannabis abuse, uncomplicated; I10 Essential (primary) hypertension; E03.9 Hypothyroidism, unspecified; F17.210 Nicotine dependence, cigarettes, uncomplicated; H54.61 Unqualified visual loss, right eye, normal vision left eye; Z87.820 Personal history of traumatic brain injury; Z88.8 Allergy status to other drugs, medicaments and biological substances; Z20.822 Contact with and (suspected) exposure to COVID-19
CPT/HCPCS: 36415; 71046; 80048; 81025; 83735; 84443; 84484; 85025; 93005; 93010; 99285-25; A9270; G0378; G0480; Q3014; U0004

== ENCOUNTER 2021-05-24 15:11 | Emergency (ER) | payer MEDICARE, OTHER ==
[~2021-05-24] VITALS: Ht 162.6 cm; Wt 81.7 kg
[~2021-05-24 15:11] MED LIST changes: +HYDHCL25 PO; +TRAZ50 PO
[2021-05-24 16:16] LABS: BASOPHILS ABSOLUTE AUTO 0.06 K/mm3 (0.00-0.23); BASOPHILS PERCENT AUTO 1 % (0-2); EOSINOPHILS PERCENT AUTO 1 % (0-6); Hematocrit 44.4 % (33.0-51.0); Hemoglobin 15.2 g/dL (11.5-16.0); IMMATURE GRAN ABSOLUTE AUTO 0.02 K/mm3 (0.00-0.10); IMMATURE GRAN PERCENT AUTO 0 % (0-1); LYMPHOCYTES ABSOLUTE AUTO 2.46 K/mm3 (0.84-5.20); LYMPHOCYTES PERCENT AUTO 30 % (21-46); MONOCYTES ABSOLUTE AUTO 0.68 K/mm3 (0.16-1.47); MONOCYTES PERCENT AUTO 8 % (4-13); Mean Corpuscular HGB 32.3 pg (26.0-34.0); Mean Corpuscular HGB Conc 34.2 g/dL (31.5-36.5); Mean Corpuscular Volume 95 fL (80-100); Mean Platelet Volume 10.3 fL (9.1-12.4); NEUTROPHILS ABSOLUTE AUTO 5.03 K/mm3 (1.96-9.15); NEUTROPHILS PERCENT AUTO 60 % (41-73); Platelet Count 291 K/mm3 (150-400); RDW Coefficient Variation 13.1 % (11.7-14.2); RDW Standard Deviation 45.5 fL (35.1-46.3); White Blood Cell Count 8.35 K/mm3 (4.00-11.30)
[2021-05-24 16:49] LABS: Alanine Aminotransfer (ALT/SGP 70 U/L (12-78); Albumin, Blood 3.9 g/dL (3.4-5.0); Albumin/Globulin Ratio 0.9 (0.8-1.8); Alk Phos 91 U/L (50-136); Anion Gap 4 mmol/L (6-16); Aspartate Aminotrans (AST/SGOT 57 U/L (12-37); Bilirubin, Total 0.4 mg/dL (0.1-1.0); Blood Urea Nitrogen 12 mg/dL (8-24); Bun/Creatinine Ratio 14.5 (12.0-20.0); CO2, Blood 22 mmol/L (21-32); Calcium, Blood 9.2 mg/dL (8.5-10.1); Chloride, Blood 113 mmol/L (98-108); Creatinine, Blood 0.83 mg/dL (0.40-1.00); Globulin, Blood 4.3 g/dL (2.2-4.0); Glomerular Filtration Rate >60 (60-); Glucose, Blood 81 mg/dL (70-99); Sodium, Blood 139 mmol/L (136-145); Total Protein, Blood 8.2 g/dL (6.4-8.2); Troponin I <0.015 ng/mL (0.000-0.040)
== END 2021-05-24 18:19 | disposition home or self-care (01) ==
LOC: ER 15:11
PROVIDERS: Physician Assistant
DX: I10 Essential (primary) hypertension (principal); R07.89 Other chest pain; Z88.6 Allergy status to analgesic agent; Z88.8 Allergy status to other drugs, medicaments and biological substances; Z79.899 Other long term (current) drug therapy; E03.9 Hypothyroidism, unspecified; F17.200 Nicotine dependence, unspecified, uncomplicated; Z87.820 Personal history of traumatic brain injury
CPT/HCPCS: 36415; 71046; 80053; 83690; 84484; 85025; 93005; 93010; 99285-25

== ENCOUNTER 2021-05-30 07:04 | Day surgery (SDC) | payer MEDICARE, OTHER ==
[~2021-05-30] VITALS: Ht 162.6 cm; Wt 79.1 kg
--- NOTE | 2021-05-30 09:54 | NUR ---
05/30/21 0954 Love Suh 0710 TETRACAINE AND PLEDGET PLACED IN RIGHT EYE [facility].PAL
== END 2021-05-30 09:27 | disposition home or self-care (01) ==
LOC: ORSCSDS 07:04
PROVIDERS: Ophthalmology
PROC: 08RJ3JZ Replacement of Right Lens with Synthetic Substitute, Percutaneous Approach (ICD-10-PCS; principal; 2021-05-30 08:00)
DX: H25.11 Age-related nuclear cataract, right eye (principal); I10 Essential (primary) hypertension; I25.10 Atherosclerotic heart disease of native coronary artery without angina pectoris; F17.210 Nicotine dependence, cigarettes, uncomplicated; N18.9 Chronic kidney disease, unspecified; B19.20 Unspecified viral hepatitis C without hepatic coma; Z79.899 Other long term (current) drug therapy
CPT/HCPCS: J2001; J2250; J3010; J3301; J7040; V2632

== ENCOUNTER 2021-07-16 08:47 | Day surgery (SDC) | payer MEDICARE, OTHER ==
[~2021-07-16] VITALS: Ht 162.6 cm; Wt 75.0 kg
--- NOTE | 2021-07-16 10:52 | NUR ---
07/16/21 1052 Anh Miller PT NON-COMPLIANT WITH PREP INSTRUCTIONS, STS SHE DECIDED TO TAKE BOTH SETS OF TABLETS YESTERDAY. ENEMA COMPLETED UPON ARRIVAL. DR. WORLEY REPORTS POOR PREP APPARENT ONCE IN [place]MOID.
== END 2021-07-16 11:35 | disposition home or self-care (01) ==
LOC: ORSCSDS 08:47
PROVIDERS: Student in an Organized Health Care Education/Training Program
PROC: 0DB68ZX Excision of Stomach, Via Natural or Artificial Opening Endoscopic, Diagnostic (ICD-10-PCS; principal; 2021-07-16 10:45)
PROC: 0DB58ZX Excision of Esophagus, Via Natural or Artificial Opening Endoscopic, Diagnostic (ICD-10-PCS; principal; 2021-07-16 10:45)
PROC: 0DJD8ZZ Inspection of Lower Intestinal Tract, Via Natural or Artificial Opening Endoscopic (ICD-10-PCS; principal; 2021-07-16 10:45)
PROC: 0DB48ZX Excision of Esophagogastric Junction, Via Natural or Artificial Opening Endoscopic, Diagnostic (ICD-10-PCS; principal; 2021-07-16 10:45)
PROC: 0DB98ZX Excision of Duodenum, Via Natural or Artificial Opening Endoscopic, Diagnostic (ICD-10-PCS; principal; 2021-07-16 10:45)
DX: K21.9 Gastro-esophageal reflux disease without esophagitis (principal); K29.70 Gastritis, unspecified, without bleeding; K29.80 Duodenitis without bleeding; K64.8 Other hemorrhoids; K64.4 Residual hemorrhoidal skin tags; K57.30 Diverticulosis of large intestine without perforation or abscess without bleeding; K59.00 Constipation, unspecified; I10 Essential (primary) hypertension; E03.9 Hypothyroidism, unspecified; B18.2 Chronic viral hepatitis C; Z79.899 Other long term (current) drug therapy; F17.210 Nicotine dependence, cigarettes, uncomplicated
CPT/HCPCS: 88305; 88342; J2704; J7120

== ENCOUNTER → 2021-08-24 | Outpatient (CLI) | payer MEDICARE, OTHER | END | disposition home or self-care (01) | LOC: LAB 18:25 → LAB SHORT 18:25 | DX: K52.9 Noninfective gastroenteritis and colitis, unspecified (principal); R35.0 Frequency of micturition | CPT/HCPCS: 87086 ==

== ENCOUNTER 2021-11-15 20:36 | Emergency (ER) | payer MEDICARE, OTHER ==
[~2021-11-15] VITALS: Ht 162.6 cm; Wt 61.2 kg
[2021-11-15 21:57] LABS: Source, Urine Clean Catch
[2021-11-15 21:59] LABS: Bilirubin, Urine Neg (Neg); Blood, Urine Neg (Neg); Glucose Qualitative, Urine Neg (Neg); Ketones, Urine Neg (Neg); Leukocyte Esterase, Urine Neg (Neg); Nitrite, Urine Neg (Neg); Protein, Urine Neg (Neg); Urobilinogen, Urine NORM (Normal)
[2021-11-15 22:09] LABS: Appearance, Urine Clear (Clear); Color, Urine Yellow (P-Yellow)
== END 2021-11-15 23:00 | disposition home or self-care (01) ==
LOC: ER 20:36
PROVIDERS: Emergency Medicine
DX: M79.89 Other specified soft tissue disorders (principal); R51.9 Headache, unspecified; Z88.6 Allergy status to analgesic agent; Z79.899 Other long term (current) drug therapy; E03.9 Hypothyroidism, unspecified; I10 Essential (primary) hypertension; F17.200 Nicotine dependence, unspecified, uncomplicated; M06.9 Rheumatoid arthritis, unspecified
CPT/HCPCS: 81003; 99284

== ENCOUNTER 2021-12-25 11:43 | Inpatient (IN) | payer MEDICARE, OTHER ==
[~2021-12-25] VITALS: Ht 162.6 cm; Wt 59.9 kg
[2021-12-25 13:30] LABS: BASOPHILS ABSOLUTE AUTO 0.05 K/mm3 (0.00-0.23); BASOPHILS PERCENT AUTO 1 % (0-2); EOSINOPHILS ABSOLUTE AUTO 0.24 K/mm3 (0.00-0.68); EOSINOPHILS PERCENT AUTO 4 % (0-6); Hematocrit 41.6 % (33.0-51.0); Hemoglobin 13.8 g/dL (11.5-16.0); IMMATURE GRAN ABSOLUTE AUTO 0.02 K/mm3 (0.00-0.10); IMMATURE GRAN PERCENT AUTO 0 % (0-1); LYMPHOCYTES ABSOLUTE AUTO 2.13 K/mm3 (0.84-5.20); LYMPHOCYTES PERCENT AUTO 35 % (21-46); MONOCYTES ABSOLUTE AUTO 0.46 K/mm3 (0.16-1.47); MONOCYTES PERCENT AUTO 8 % (4-13); Mean Corpuscular HGB 30.3 pg (26.0-34.0); Mean Corpuscular HGB Conc 33.2 g/dL (31.5-36.5); Mean Corpuscular Volume 91 fL (80-100); NEUTROPHILS PERCENT AUTO 53 % (41-73); Platelet Count 347 K/mm3 (150-400); RDW Coefficient Variation 13.2 % (11.7-14.2); RDW Standard Deviation 44.6 fL (35.1-46.3); Red Blood Cell Count 4.55 M/mm3 (3.80-5.20)
[2021-12-25 13:56] LABS: Albumin/Globulin Ratio 0.8 (0.8-1.8); Bilirubin, Total 0.4 mg/dL (0.1-1.0); Bun/Creatinine Ratio 20.4 (12.0-20.0); Calcium, Blood 9.3 mg/dL (8.5-10.1); Creatinine, Blood 0.59 mg/dL (0.40-1.00); Globulin, Blood 3.9 g/dL (2.2-4.0); Potassium, Blood 4.5 mmol/L (3.5-5.5); Total Protein, Blood 6.9 g/dL (6.4-8.2)
[2021-12-25] MEDS ORDERED: GABA100 PO (14:50)
[2021-12-25] MEDS ORDERED: EUTHYROX150 MC1 PO (14:50)
[2021-12-25] MEDS ORDERED: MAVYRET 100-401 EAC1 PO (16:32)
[2021-12-25 16:33] LABS: U Amphetamine Screen Not Detected; U Barbituate Screen Not Detected; U Benzodiazapine Screen Not Detected; U Buprenorphine Screen Not Detected; U Cannabinoids Screen DETECTED; U Cocaine Screen Not Detected; U Methadone Screen Not Detected; U Methamphetamine Screen Not Detected; U Opiates Screen Not Detected; U Oxycodone Screen Not Detected; U Phencyclidine Screen Not Detected; U Propoxyphene Screen Not Detected
[2021-12-25] MEDS ORDERED: FAMO20 PO (16:33)
[2021-12-25] MEDS ORDERED: BISA5EC PO (16:43)
--- NOTE | 2021-12-26 03:14 | NUR ---
PT A/O X 4. VS STABLE. PT INDEPENDENT IN ROOM. PT ON PENICILLIN ABX TREATMENT FOR NEXT 10 DAYS. PT IS CALM AND PLEASANT TOWARDS STAFF. PT LIKES SNACKS. PT IS SITTING IN BED WATCHING TV WITH CALL LIGHT WITHIN REACH AND BED IN LOWEST POSITION.
--- NOTE | 2021-12-26 06:43 | NUR ---
OB/GYN NOTES AND DOCUMENTS REVIEWED AND IN AGREEMENT
[2021-12-26 08:11] LABS: HIV AB/P24 AG SCREEN Non Reactive (Non Reactive)
[2021-12-26 11:02] LABS: RPR Reactive (Nonreactive)
--- NOTE | 2021-12-27 05:25 | NUR ---
PT A/O X 4. VS STABLE. PT ON 10 DAY PENICILLIN ABX TREATMENT FOR OCULAR SYPHILIS. PT HAS REASSESSMENT WITH OPHLAMOLOGIST DR. FRITZ 12/27/21. PT HAS PG IN [facility]. PT HAS PENDING CHLAMYDIA/GONORRHEA RESULTS. PT IS COOPERATIVE WITH CARE. PT IS RESTING WITH CALL LIGHT WITHIN REACH AND BED IN LOWEST POSITION.
--- NOTE | 2021-12-27 15:48 | NUR ---
SHIFT SUMMARY PT AWAKE AT START OF SHIFT, DURING SHIFT REPORT. A&O, PLEASANT AND CO-OP WITH CARE. INDEPENDENT IN AND TO BTHRM. ADMITTED FOR OCULAR SYPHILIS; RECEIVING IV ABX Q4 HRS. PT NEEDING 10 DAYS IV ABX. PER REPORT, DR ATWOOD TO COME AND SEE PT TODAY FOR REASSESSMENT. DR STILES HERE TO SEE PT THIS AM. NO NEW ORDERS. PT TALKING ON PHONE AND WATCHING TV. DENIES FURTHER NEEDS AT THIS TIME. CALL LT IN REACH.
--- NOTE | 2021-12-27 16:01 | NUR ---
PER PT, DR FRITZ IS PT'S EYE DOCTOR WHO SENT HER TO ER FROM HIS OFFICE. PER SHIFT REPORT, DR FRITZ TO COME TODAY TO REASSESS PT. DR STILES NOTIFIED TO CLARIFY INFORMATION. PER DR STILES, DR FRITZ NOTIFIED BY ER AND REPORTED THAT HE WOULD COME IN ON THURSDAY TO REASSESS PT, POSSIBLY AFTER HOURS.
[2021-12-28 05:55] LABS: Hematocrit 38.5 % (33.0-51.0); Hemoglobin 12.9 g/dL (11.5-16.0); Mean Corpuscular HGB 30.2 pg (26.0-34.0); Mean Corpuscular HGB Conc 33.5 g/dL (31.5-36.5); Mean Corpuscular Volume 90 fL (80-100); Mean Platelet Volume 10.1 fL (9.1-12.4); Platelet Count 321 K/mm3 (150-400); RDW Coefficient Variation 13.1 % (11.7-14.2); RDW Standard Deviation 42.5 fL (35.1-46.3); Red Blood Cell Count 4.27 M/mm3 (3.80-5.20); White Blood Cell Count 6.52 K/mm3 (4.00-11.30)
[2021-12-28 06:11] LABS: Albumin, Blood 2.7 g/dL (3.4-5.0); Albumin/Globulin Ratio 0.7 (0.8-1.8); Bilirubin, Total 0.2 mg/dL (0.1-1.0); Bun/Creatinine Ratio 20.1 (12.0-20.0); Calcium, Blood 8.9 mg/dL (8.5-10.1); Creatinine, Blood 0.65 mg/dL (0.40-1.00); Globulin, Blood 3.8 g/dL (2.2-4.0); Total Protein, Blood 6.5 g/dL (6.4-8.2)
--- NOTE | 2021-12-28 06:35 | NUR ---
NO CHANGES NOTED OVERNIGHT FOR DUANE. TOLERATING IV PCN AND THE FREQUENT WAKE UPS THAT GO ALONG WITH IT. SHE IS A&OX4 AND COOPERATIVE WITH CARE. NO COMPLAINTS OF PAIN, JUST SOME MILD ITCHING IN EYES WHICH SHE STATES IS A BIG IMPROVEMENT
[2021-12-28 06:47] LABS: BAND PERCENT MAN 1 % (0-8); BASOPHILS ABSOLUTE MAN 0.06 K/mm3 (0.00-0.23); BASOPHILS PERCENT MAN 1 % (0-2); EOSINOPHILS ABSOLUTE MAN 0.26 K/mm3 (0.00-0.68); EOSINOPHILS PERCENT MAN 4 % (0-6); LYMPHOCYTES ABSOLUTE MAN 2.28 K/mm3 (0.84-5.20); LYMPHOCYTES PERCENT MAN 35 % (21-46); MONOCYTES ABSOLUTE MAN 0.52 K/mm3 (0.16-1.47); MONOCYTES PERCENT MAN 8 % (4-13); NEUTROPHILS ABSOLUTE MAN 3.39 K/mm3 (1.96-9.15); SEG NEUTROPHILS PERCENT MAN 51 % (41-73); TOTAL CELLS COUNTED 100
--- NOTE | 2021-12-28 17:06 | NUR ---
DAYSHIFT SUMMARY Patient doing well this shift, denies pain/discomfort. Reports blurred vison in right eye, and infrequent blurred vision in left eye. Penicillin infused Q4H. Changed powerglide dressing, CDI. Powerglide patent, flushed. Vitals stable.
--- NOTE | 2021-12-29 03:28 | NUR ---
SLEPT BETTER TONIGHT. NO COMPLAINTS OF PAIN OR DISCOMFORT. PATIENT WORKED QUIETLY WITH HER CRAFTS WHEN SHE WAS AWAKE. CONTINUES TO TOLERATE Q4 PCN WITHOUT DIFFICULTY. NO OTHER CHANGES NOTED.
--- NOTE | 2021-12-29 18:35 | NUR ---
DAYSHIFT SUMMARY Pt doing well, denies pain/discomfort. Reports intermittent blurred/double vision in right eye. No other conerns reported to staff. Penicillin infused Q4H, via midline catheter. Site patent, flushed, dressing CDI. Nicotine patch on LUE. Pt OOB walked halls. No other concerns at this time. Vitals stable.
--- NOTE | 2021-12-30 06:22 | NUR ---
SHIFT SUMMARY NOC: OPTHAMOLOGIST ASSESSED PT THIS SHIFT. PT TOLERATING ABX WELL. PT REPORTS NO PAIN, SOB, OR NAUSEA. PT INDEPENENT IN ROOM AND HALLWAY. PT SLEPT ALL NIGHT. NO ADVERSE EVENTS.
--- NOTE | 2021-12-30 18:42 | NUR ---
DAYSHIFT SUMMARY No changes to patient status this shift, continuing ABX therapy Q4H. [employer] called regarding Tx for Syphillis to ensure proper ABX tx was initiated. Patient continues to report intermittint blurred vision in right eye. Vitals stable, no other concerns at this time.
--- NOTE | 2021-12-31 05:55 | NUR ---
SHIFT SUMMARY NOC: PT HAD VIDEO CHAT WITH GRANDCHILDREN LAST NIGHT, LAUGHING, HAPPY, AND IN GOOD SPIRITS. PT SLEPT ALL NIGHT. NO ADVERSE EVENTS.
--- NOTE | 2021-12-31 16:28 | NUR ---
SHIFT SUMMARY PATIENT IS ALERT AND ORIENTED X4. PATIENT IS ADMITTED FOR OCULAR SYPHILIS. PATIENT HAS BEEN PLEASENT AND COOPERATIVE WITH CARE. PATIENT HAS BEEN GETTING Q4 ABX. PATIENT HAS HAD NO ACUTE EVENTS THIS SHIFT. PATIENT HAS HAD NO COMPLAINTS OF PAIN, NAUSEA, SOB OR VOMITTING THIS SHIFT. BED IN LOCKED AND LOWEST POSITION. CALL LIGHT IN PLACE. WILL MONITOR UNTIL SHIFT CHANGE.
--- NOTE | 2022-01-01 05:58 | NUR ---
SHIFT SUMMARY NOC: PT SLEPT ALL NIGHT. NO ADVERSE EVENTS.
--- NOTE | 2022-01-01 18:16 | NUR ---
DAYSHIFT SUMMARY No acute changes to patient status, continuing Penicillin IV tx, no adverse reaction to IV therapy, patient tolerating ABX. Vitals signs stable. Patient OOB, walking halls today.
--- NOTE | 2022-01-02 04:47 | NUR ---
PT INDEPENDENT IN ROOM, VSS. ANTIBIOTICS GIVEN, SEE MAR.
--- NOTE | 2022-01-02 19:34 | NUR ---
SHIFT SUMMARY- PT A/O X4, INDEP UP IN ROOM AND HALLS. PT MEDICATED X1 WITH BENADRYL AND TYLENOL. PT CONTINUES WITH IV ABX WITH POSSIBLE D/C ON THURSDAY. NO OTHER ACUTE CHANGES THIS SHIFT.
--- NOTE | 2022-01-03 12:17 | NUR ---
TREMORS- PT CALLED AND REPORTED FEELING VERY SHAKY ON RIGHT SIDE. PT NOTED TO BE VERY TREMULOUS TO RIGHT HAND AND HEAD. SHE DENIES FEELING ANXIOUS. REPORTS THIS HAS BEEN HAPPENING ON OFF THE LAST COUPLE OF DAYS BUT DID NOT NOTIFY ANYONE. DR CHO NOTIFIED AND ORDERS RECEIVED FOR HYDROXYZINE 50MG X1 AT THIS TIME.
--- NOTE | 2022-01-03 17:20 | NUR ---
SHIFT SUMMARY- A/OX4, INDEP UP IN ROOM. PT TREMULOUS THIS AFTERNOON ON THE RIGHT SIDE, HYDROXYZINE GIVEN AND TEMORS RESOLVED. PT CONTINUES WITH IV ABX, PLAN TO D/C TOMORROW AFTER 1000 DOSE. NO OTHER ACUTE CHANGES THIS SHIFT.
--- NOTE | 2022-01-04 04:38 | NUR ---
FAMILY VISITING AT BEGINING OF SHIFT. CIGARETS NOTED ON TABLE AFTER THEY LEFT AND PATIENT WENT FOR A WALK OUTSIDE TO SMOKE. DIRECTOR EHS CALLED AND SPOKE WITH PATIENT. PT APPOLOGIZED AND ALLOWED STAFF TO PLACE CIGARETTS IN LOCKED DRAWER WITH MEDICATIONS. NO OTHER ISSUES DURING THE NIGHT, VSS. MEDICATIONS GIVEN PER ORDER.
[2022-01-04] MEDS ORDERED: ACET325 PO (11:09)
[2022-01-04] MEDS ORDERED: NICO21TP TOP (11:09)
[2022-01-04] MEDS ORDERED: NORVASC5 MG PO (11:09)
[2022-01-04] MEDS ORDERED: LEVSOD137 PO (11:10)
[2022-01-04] MEDS ORDERED: VISBIOME 112.51 EACH PO (11:10)
--- NOTE | 2022-01-04 12:21 | NUR ---
DISCHARGE SUMMARY PATIENT IS ALERT AND ORIENTED X4. PATIENT IS IND IN ROOM. PATIENT HAS HAD NO ACUTE EVENTS THIS SHIFT. PATIENT HAD LAST COURSE OF ANTIBIOTICS BEFORE DISCHARGE. PATIENT WAS READ DISCHARGE INSTRUCTIONS AND UNDERSTOOD. PATIENT DISCHARGED TO FRIENDS CAR AND WHEELED OUT BY MATTY MIRANDA.
== END 2022-01-04 12:15 | disposition home or self-care (01) | DRG 125 ==
LOC: ER 11:43 → EDBEDREQSVC 15:46 → MEDS 15:48
PROVIDERS: Emergency Medicine; Nurse Practitioner Acute Care; Student in an Organized Health Care Education/Training Program; ADMIT Internal Medicine
DX: A52.71 Late syphilitic oculopathy (principal); B18.2 Chronic viral hepatitis C; R63.4 Abnormal weight loss; Z68.22 Body mass index [BMI] 22.0-22.9, adult; E03.9 Hypothyroidism, unspecified; F41.9 Anxiety disorder, unspecified; M06.9 Rheumatoid arthritis, unspecified; I10 Essential (primary) hypertension; Z59.00 Homelessness unspecified; F17.210 Nicotine dependence, cigarettes, uncomplicated; Z88.6 Allergy status to analgesic agent; Z79.899 Other long term (current) drug therapy; Z90.710 Acquired absence of both cervix and uterus; Z90.49 Acquired absence of other specified parts of digestive tract
CPT/HCPCS: 74177; 80053; 85025; 86592; 86593; 86780; 87389; 96365; 99284-25; A9270; J1650; J2540; J7040; J7060; Q9967

== ENCOUNTER 2022-03-08 18:19 | Emergency (ER) | payer MEDICARE, OTHER ==
[~2022-03-08] VITALS: Ht 162.6 cm; Wt 63.5 kg
[~2022-03-08 18:19] MED LIST changes: +BISA5EC PO; +EUTHYROX150 MC1 PO; +FAMO20 PO; +LEVSOD137 PO; +MAVYRET 100-401 EAC1 PO; +NICO21TP TOP; +NORVASC5 MG PO; +VISBIOME 112.51 EACH PO
[2022-03-08 19:02] LABS: BASOPHILS ABSOLUTE AUTO 0.06 K/mm3 (0.00-0.23); BASOPHILS PERCENT AUTO 1 % (0-2); EOSINOPHILS ABSOLUTE AUTO 0.17 K/mm3 (0.00-0.68); EOSINOPHILS PERCENT AUTO 2 % (0-6); Hematocrit 43.6 % (33.0-51.0); IMMATURE GRAN ABSOLUTE AUTO 0.02 K/mm3 (0.00-0.10); IMMATURE GRAN PERCENT AUTO 0 % (0-1); LYMPHOCYTES ABSOLUTE AUTO 2.83 K/mm3 (0.84-5.20); LYMPHOCYTES PERCENT AUTO 30 % (21-46); MONOCYTES PERCENT AUTO 7 % (4-13); Mean Corpuscular HGB 30.9 pg (26.0-34.0); Mean Corpuscular HGB Conc 34.4 g/dL (31.5-36.5); Mean Corpuscular Volume 90 fL (80-100); Mean Platelet Volume 10.8 fL (9.1-12.4); NEUTROPHILS ABSOLUTE AUTO 5.77 K/mm3 (1.96-9.15); NEUTROPHILS PERCENT AUTO 61 % (41-73); Platelet Count 281 K/mm3 (150-400); RDW Coefficient Variation 13.5 % (11.7-14.2); RDW Standard Deviation 44.6 fL (35.1-46.3); Red Blood Cell Count 4.85 M/mm3 (3.80-5.20); White Blood Cell Count 9.55 K/mm3 (4.00-11.30)
[2022-03-08 19:11] LABS: Albumin, Blood 3.8 g/dL (3.4-5.0); Bilirubin, Total 0.3 mg/dL (0.1-1.0); Bun/Creatinine Ratio 23.6 (12.0-20.0); Calcium, Blood 9.5 mg/dL (8.5-10.1); Creatinine, Blood 0.68 mg/dL (0.40-1.00); Potassium, Blood 4.7 mmol/L (3.5-5.5); Total Protein, Blood 7.8 g/dL (6.4-8.2)
[2022-03-08 19:26] LABS: Source, Urine Clean Catch
[2022-03-08 19:34] LABS: Appearance, Urine Clear (Clear); Bilirubin, Urine Neg (Neg); Blood, Urine Neg (Neg); Color, Urine Yellow (P-Yellow); Glucose Qualitative, Urine Neg (Neg); Ketones, Urine Neg (Neg); Leukocyte Esterase, Urine Neg (Neg); Nitrite, Urine Neg (Neg); Protein, Urine Neg (Neg); Urobilinogen, Urine NORM (Normal)
== END 2022-03-08 23:30 | disposition home or self-care (01) ==
LOC: ER 18:19
PROVIDERS: Physician Assistant
DX: R07.81 Pleurodynia (principal); I10 Essential (primary) hypertension; E03.9 Hypothyroidism, unspecified; Z79.899 Other long term (current) drug therapy; Z88.6 Allergy status to analgesic agent
CPT/HCPCS: 36415; 71100; 80053; 81003; 83690; 85025; A9270; J1885; J2405; J7030

== ENCOUNTER 2022-03-24 06:43 | Day surgery (SDC) | payer MEDICARE, OTHER ==
[~2022-03-24] VITALS: Ht 162.6 cm; Wt 66.5 kg
[2022-03-24] MEDS ORDERED: HYDPAM25 (07:52)
--- NOTE | 2022-03-24 09:31 | NUR ---
03/24/22 0931 Kylee Morrison 11+ IV TRIES. 9 WITH RN, 2 WITH ANESTHESIOLOGIST W/ ULTRASOUND. IV PLACED IN L INDEX FINGER. PT TOLERATED WELL.
== END 2022-03-24 10:16 | disposition home or self-care (01) ==
LOC: ORSCSDS 06:43
PROVIDERS: Student in an Organized Health Care Education/Training Program
PROC: 0DBP8ZX Excision of Rectum, Via Natural or Artificial Opening Endoscopic, Diagnostic (ICD-10-PCS; principal; 2022-03-24 08:15)
PROC: 0DBN8ZX Excision of Sigmoid Colon, Via Natural or Artificial Opening Endoscopic, Diagnostic (ICD-10-PCS; principal; 2022-03-24 08:15)
PROC: 0DBL8ZX Excision of Transverse Colon, Via Natural or Artificial Opening Endoscopic, Diagnostic (ICD-10-PCS; principal; 2022-03-24 08:15)
DX: K59.00 Constipation, unspecified (principal); R63.4 Abnormal weight loss; K63.5 Polyp of colon; K62.1 Rectal polyp; K64.8 Other hemorrhoids; K57.30 Diverticulosis of large intestine without perforation or abscess without bleeding; K62.89 Other specified diseases of anus and rectum; I10 Essential (primary) hypertension; E78.5 Hyperlipidemia, unspecified; Z79.899 Other long term (current) drug therapy; E03.9 Hypothyroidism, unspecified; B19.20 Unspecified viral hepatitis C without hepatic coma; F41.8 Other specified anxiety disorders; K21.9 Gastro-esophageal reflux disease without esophagitis; I25.10 Atherosclerotic heart disease of native coronary artery without angina pectoris; F43.10 Post-traumatic stress disorder, unspecified
CPT/HCPCS: 88305; J2250; J2704; J7120

== ENCOUNTER 2024-04-04 10:53 | Emergency (ER) | payer MEDICARE, OTHER ==
[~2024-04-04] VITALS: Ht 162.6 cm; Wt 68.0 kg
[~2024-04-04 10:53] MED LIST changes: +HYDPAM25; +OXYM.05NI
[2024-04-04] MEDS ORDERED: NS 1,000 ML IV SCH (11:35)
[2024-04-04] MEDS ORDERED: Ondansetron HCl 2 MG / ML 2ML Vial IV ONE (11:35)
[2024-04-04 12:06] LABS: BASOPHILS ABSOLUTE AUTO 0.04 K/mm3 (0.00-0.23); BASOPHILS PERCENT AUTO 1 % (0-2); EOSINOPHILS ABSOLUTE AUTO 0.12 K/mm3 (0.00-0.68); EOSINOPHILS PERCENT AUTO 2 % (0-6); Hematocrit 43.5 % (33.0-51.0); Hemoglobin 15.7 g/dL (11.5-16.0); IMMATURE GRAN ABSOLUTE AUTO 0.02 K/mm3 (0.00-0.10); IMMATURE GRAN PERCENT AUTO 0 % (0-1); LYMPHOCYTES PERCENT AUTO 26 % (21-46); MONOCYTES ABSOLUTE AUTO 0.72 K/mm3 (0.16-1.47); MONOCYTES PERCENT AUTO 9 % (4-13); Mean Corpuscular HGB 32.6 pg (26.0-34.0); Mean Corpuscular HGB Conc 36.1 g/dL (31.5-36.5); Mean Corpuscular Volume 90 fL (80-100); Mean Platelet Volume 10.5 fL (9.1-12.4); NEUTROPHILS ABSOLUTE AUTO 4.75 K/mm3 (1.96-9.15); NEUTROPHILS PERCENT AUTO 62 % (41-73); Platelet Count 277 K/mm3 (150-400); RDW Coefficient Variation 11.9 % (11.7-14.2); RDW Standard Deviation 39.6 fL (35.1-46.3); Red Blood Cell Count 4.82 M/mm3 (3.80-5.20); White Blood Cell Count 7.65 K/mm3 (4.00-11.30)
[2024-04-04 12:29] LABS: Albumin, Blood 3.6 g/dL (3.4-5.0); Albumin/Globulin Ratio 1.1 (0.8-1.8); Bilirubin, Total 0.4 mg/dL (0.1-1.0); Bun/Creatinine Ratio 14.4 (12.0-20.0); Calcium, Blood 9.4 mg/dL (8.5-10.1); Creatinine, Blood 0.63 mg/dL (0.40-1.00); Globulin, Blood 3.4 g/dL (2.2-4.0); Potassium, Blood 4.3 mmol/L (3.5-5.5)
[2024-04-04] MEDS ORDERED: Sucralfate 1000MG / 10ML UD BTL PO ONE (16:10)
[2024-04-04] MEDS ORDERED: Lidocaine 2% Viscous Soln 15 ML UDC PO ONE (16:15)
[2024-04-04 16:54] LABS: Source, Urine Clean Catch
[2024-04-04 16:57] LABS: Appearance, Urine Clear (Clear); Bilirubin, Urine Neg (Neg); Blood, Urine Neg (Neg); Color, Urine Yellow (P-Yellow); Glucose Qualitative, Urine Neg (Neg); Ketones, Urine Neg (Neg); Leukocyte Esterase, Urine Neg (Neg); Nitrite, Urine Neg (Neg); Protein, Urine Neg (Neg); Specific Gravity, Urine 1.005 (1.003-1.022); Urobilinogen, Urine NORM (Normal); pH, Urine 6.5 (5.0-8.0)
[2024-04-04 17:33] LABS: Influenza A, PCR NEGATIVE (NEGATIVE); Influenza B, PCR NEGATIVE (NEGATIVE); Resp Syncytial Virus, PCR NEGATIVE (NEGATIVE); SARS-Cov-2 (COVID-19) PCR, MMC NEGATIVE (NEGATIVE)
[2024-04-04] MEDS ORDERED: OMEP20ER PO (18:38)
[2024-04-04] MEDS ORDERED: SUCR1 PO (18:38)
[2024-04-04 18:45] VITALS: BP 138/76
== END 2024-04-04 18:55 | disposition home or self-care (01) ==
LOC: ER 10:53
PROVIDERS: Physician Assistant; Student in an Organized Health Care Education/Training Program
DX: R07.89 Other chest pain (principal); K21.9 Gastro-esophageal reflux disease without esophagitis; E03.9 Hypothyroidism, unspecified; I10 Essential (primary) hypertension; M06.9 Rheumatoid arthritis, unspecified; M32.9 Systemic lupus erythematosus, unspecified; K57.30 Diverticulosis of large intestine without perforation or abscess without bleeding; F41.9 Anxiety disorder, unspecified; F17.210 Nicotine dependence, cigarettes, uncomplicated; Z87.440 Personal history of urinary (tract) infections; Z90.49 Acquired absence of other specified parts of digestive tract; Z79.2 Long term (current) use of antibiotics; Z79.890 Hormone replacement therapy; Z79.899 Other long term (current) drug therapy
CPT/HCPCS: 0241U; 71045; 74177; 80053; 81003; 83690; 84484; 85025; A9270; J2405; Q9967

== ENCOUNTER → 2024-08-04 | Outpatient (CLI) | payer MEDICARE, OTHER ==
[~2024-08-04] MED LIST changes: +OMEP20ER PO; +SUCR1 PO
[2024-08-04 15:54] LABS: Free Thyroxine 0.25 ng/dL (0.70-1.60)
[2024-08-04 15:55] LABS: Thyroid Stimulating Hormone 149.857 uIU/mL (0.360-4.800)
== END ==
LOC: LAB 15:32 → LAB SHORT 15:32
PROVIDERS: Chiropractor
DX: E03.9 Hypothyroidism, unspecified (principal)
CPT/HCPCS: 84439; 84443

== ENCOUNTER → 2024-12-10 | Outpatient (CLI) | payer OTHER | END | disposition home or self-care (01) | LOC: LAB 13:30 → LAB SHORT 13:30 | DX: R30.0 Dysuria (principal) | CPT/HCPCS: 87086 ==